=== PATIENT | female | born 1960 | race Caucasian/White ===

== ENCOUNTER 2019-08-29 21:32 | Emergency (ER) | payer SELFPAY | END 2019-08-29 22:10 | disposition home or self-care (01) | LOC: ERS 21:32 | DX: J11.1 Influenza due to unidentified influenza virus with other respiratory manifestations (principal); M79.7 Fibromyalgia; K21.9 Gastro-esophageal reflux disease without esophagitis; J44.9 Chronic obstructive pulmonary disease, unspecified; M19.90 Unspecified osteoarthritis, unspecified site; F41.9 Anxiety disorder, unspecified; F17.210 Nicotine dependence, cigarettes, uncomplicated; I10 Essential (primary) hypertension; Z79.899 Other long term (current) drug therapy | CPT/HCPCS: 99283 ==

== ENCOUNTER 2020-10-25 07:45 | Outpatient (CLI) | payer OTHER ==
--- NOTE | 2020-10-25 09:11 | MRI ---
MRI of thethoracic spine: 10/25/2020 COMPARISON:None available HISTORY:Pain, recent fall TECHNIQUE: Multiplanar multisequence MR imaging of the thoracic spine with and without contrast Findings:The sagittal STIR imaging demonstrates subtle increased signal intensity involving the T3 ve rtebral body, primarily in the superior endplate region. This is consistent with a T3 fracture with approximately 25% loss of vertebral body height anteriorly. A linear T1 hypointense fracture line is seen in the region of the superior endplate of the T3 verteb ral body. There is no osseous retropulsion. The STIR imaging demonstrates no additional thoracic spine fracture. There is mild anterior wedging of the T12 vertebral body with a Schmorl's node involv ing the superior endplate. No osseous marrow edema seen suggesting that this is a remote fracture. C7-T1: Bilateral facet and uncovertebral osteophyte formation. Mild bilateral neural foraminal stenos is. No significant central canal stenosis. T1-2: No significant central canal or neural foraminal stenosis. T2-T3: No significant central canal or neural foraminal stenosis T3-4: No significant central canal or neural foraminal stenosis. T4-5: No significant central canal or neural foraminal stenosis T5-6: No significant central canal or neural foraminal stenosis. T6-7: No significant central canal or neural foraminal stenosis. T7-8: No significant central canal or neural foraminal stenosis. T8-9: No significant central canal or neural foraminal stenosis. T9-10: No significant central canal or neural foraminal stenosis. T10-11: No significant central canal or neural foraminal stenosis. T11-12: No significant central canal or neural foraminal stenosis. T12-L1: No significant central canal or neural foraminal stenosis. There is a very small caliber syrinx within the upper and mid thoracic cord as well as at the level o f the T12 vertebral body only measuring up to approximately 1-2 mm in transverse dimension. No abnormal enhancement is seen. This is a finding of doubtful clinical significance. The postcontrast imaging demonstrates no abnormal enhancement involving the contents of the thecal sa c or the intervertebral discs. There is no focal area of abnormal signal intensity otherwise seen within the thoracic cord. The kidneys are only partially imaged on this exam. There is a posterior upper pole exophytic cyst wh ich emanates from the upper pole of the left kidney measures in the 9 mm range. There is a posterior 1 cm upper pole left renal lesion which is hyperintense on the precontrast T1-weighted imag ing and appears to demonstrate a fluid fluid level on the axial T2 imaging. A CT of the abdomen with and without contrast is suggested for full assessment. IMPRESSION: 1. Mild anterior wedge compression fracture of the T3 vertebral body with marrow edema consistent wit h an acute fracture. There is approximately 25% loss of vertebral body height and there is no osseous retropulsion. 2. Nonspecific T1 hyperintense exophytic lesion emanating from the upper pole of the left kidney. Rec ommend CT of the abdomen with and without contrast using a renal mass protocol. Results relayed to Dr. Yadav via [facility] at 9:08 AM 10/25/2020 CODE T
[2020-10-25] MEDS ORDERED: Magnevist 469MG/ML 20 ML VIAL ONE (11:10)
== END 2020-10-25 07:46 | disposition home or self-care (01) ==
LOC: MRI 07:45
PROVIDERS: ATTEND Family Medicine
DX: M54.6 Pain in thoracic spine (principal); S22.030A Wedge compression fracture of third thoracic vertebra, initial encounter for closed fracture; N28.9 Disorder of kidney and ureter, unspecified
CPT/HCPCS: 72157; 82565; A9579

== ENCOUNTER 2021-05-19 19:48 | Emergency (ER) | payer SELFPAY ==
[~2021-05-19 19:48] MED LIST: Iopamidol-370 76% 500 ML 1 ML ONE
[2021-05-19] MEDS ORDERED: Ondansetron PF 4 MG/2 ML Vial ONE ×2 (20:53→21:08)
[2021-05-19] MEDS ORDERED: Morphine 4 MG/ML VIAL ONE (20:53)
[2021-05-19 21:16] LABS: #Basophils 0.1 thou/uL (0.0-0.2); #Eosinphils 0.1 thou/uL (0.0-0.7); #Lymphocytes 3.5 thou/uL (1.20-3.40); #Monocytes 0.5 thou/uL (0.11-0.59); #Neutrophils 5.5 thou/uL (1.40-6.50); %Basophils 0.7 % (0.0-1.0); %Eosinophils 0.6 % (0.0-10.0); %Lymphocytes 36.6 % (21.0-51.0); %Monocytes 4.9 % (0.0-10.0); %Neutrophils 57.1 % (42.0-75.0); Hemoglobin 16.5 g/dL (12.0-16.0); Mean Corpuscular HGB CONC 34.9 g/dL (32.0-36.0); Mean Corpuscular Hemoglobin 32.5 pg (27.0-31.0); Mean Corpuscular Volume 93.2 fL (78.0-98.0); Mean Platelet Volume 7.1 fL (7.4-10.4); Platelet Count 351 thou/uL (130-400); RBC Distribution Width 12.2 % (11.5-14.5); Red Blood Cell (RBC) Count 5.07 mill/uL (4.20-5.40); White Blood Cell (WBC) Count 9.6 thou/uL (4.8-10.8)
[2021-05-19 21:29] LABS: ALT (SGPT) 17 U/L (8-55); AST (SGOT) 15 U/L (5-34); Albumin 4.4 g/dL (3.5-5.0); Alkaline Phosphatase 96 U/L (40-110); Anion Gap 15 mmol/L (10-20); BUN (Urea Nitrogen) 14 mg/dL (9.8-20.1); Bilirubin, Total 0.6 mg/dL (0.2-1.2); Calc. Creatinine Clearance 0 mL/min (70-130); Calcium 9.9 mg/dL (7.8-10.44); Carbon Dioxide 30 mmol/L (22-29); Chloride 98 mmol/L (98-107); Globulin 3.1 g/dL (2.4-3.5); Glucose 118 mg/dL (70-105); Lipase 37 U/L (8-78); Protein, Total 7.5 g/dL (6.0-8.3); Sodium 140 mmol/L (136-145)
[2021-05-19 21:35] LABS: Potassium 2.9 mmol/L (3.5-5.1)
[2021-05-19] MEDS ORDERED: Potassium Chloride 20 MEQ TAB ONE (23:17)
[2021-05-20 00:35] LABS: Lactic Acid 1.2 mmol/L (0.5-2.2)
== END 2021-05-19 23:50 | disposition home or self-care (01) ==
LOC: ERS 19:48
DX: R11.2 Nausea with vomiting, unspecified (principal); R10.9 Unspecified abdominal pain; R19.7 Diarrhea, unspecified; K58.9 Irritable bowel syndrome, unspecified; F17.210 Nicotine dependence, cigarettes, uncomplicated; I10 Essential (primary) hypertension; J44.9 Chronic obstructive pulmonary disease, unspecified; M19.90 Unspecified osteoarthritis, unspecified site
CPT/HCPCS: 36415; 74177; 80053; 83605; 83690; 85025; 96374; 96375; J2270; J2405; Q9967